=== PATIENT | male | born 1985 | race Caucasian/White ===

== ENCOUNTER → 2024-02-13 | Outpatient (CLI) | payer OTHER ==
[2024-02-13 18:57] LABS: Basophils # (A) 0.05 X 10*3/uL (0.00-0.10); Basophils % (A) 0.6 %; HCT 47.4 % (39.6-50.0); HGB 15.8 g/dL (13.0-17.0); Lymphocytes # (A) 1.63 X 10*3/uL (0.90-5.00); MCH 29.6 pg (27.0-32.0); MCHC 33.3 g/dL (32.0-37.0); MCV 88.8 FL (80.0-97.0); Mean Platelet Volume 10.6 FL (9.5-12.2); Monocytes # (A) 0.53 X 10*3/uL (0.20-1.00); Monocytes % (A) 6.2 %; NRBC Per 100 WBC 0 X 10*3/uL (0.00-0.01); Neutrophils # (A) 5.72 X 10*3/uL (1.80-7.70); Neutrophils % (A) 66.6 %; Platelet Count 260 X 10*3/uL (140-440); RBC 5.34 X 10*6/uL (4.40-5.60); RDW 12.8 % (11.5-14.5); WBC 8.58 X 10*3/uL (4.50-10.00)
[2024-02-13 19:30] LABS: BUN/Creat Ratio 13.91 Ratio (12.00-20.00); Blood Urea Nitrogen 15.3 mg/dL (9.0-27.0); Calcium 9.1 mg/dL (8.7-10.3); Carbon Dioxide 25.6 mmol/L (21.6-31.8); Chloride 104 mmol/L (96-109); Glucose 86 mg/dL (70-110); Potassium 4.5 mmol/L (3.5-5.5); Sodium 140 mmol/L (135-145)
== END | disposition home or self-care (01) ==
LOC: LABPAT 13:11
PROVIDERS: ATTEND Orthopaedic Surgery
DX: Z01.812 Encounter for preprocedural laboratory examination
CPT/HCPCS: 36415; 80048; 85025

== ENCOUNTER 2024-02-28 06:11 | Day surgery (SDC) | payer OTHER ==
--- NOTE | 2024-02-27 08:35 | P.HPOR ---
History of Present Illness H&P Date: 02/27/24 Chief Complaint: left knee pain The patient is a 38-year-old male who presents with left knee pain after an injury November of this year after working out when he felt a pop in his knee. He notes swelling and stiffness ever since. He has painful popping along with giving way. He has a history of ACL reconstruction in 2003. He notes daily pain that limits him. Review of Systems Per HPI Past Medical History Past Surgical History: Orthopedic Surgery (Left ACL reconstruction) Physical Examination - Knee left Appearance: effusion Effusion grade: trace Tenderness with palpation: medial ROM: extension: -10 degrees ROM: flexion: 110 degrees Crepitus with motion: Yes Strength: extension: 5/5 Strength: flexion: 5/5 ACL tests: Dolores's: grade 1, pivot shift: grade 1 Meniscal tests: medial meniscal tests: positive, medial joint line pain: positive Results The patient is a well-developed well-nourished male approximately 49, 220 pounds of mesomorphic habits. HEENT exam is nonfocal, neck is supple. His painless passive motion of the left hip. He is tender about the medial joint line of the left knee. Collaterals are stable, Dolores's 1+, Aditya's with medial pain. His distal neurovascular appears intact in the left lower extremity. - Diagnostic results Knee MRI: image reviewed (MRI of the left knee shows evidence of increased signal involving the posterior medial and lateral menisci. The ACL graft appears to be intact. Degenerative changes involving the lateral compartment are present.) Assessment and Plan Assessment: Left knee internal derangement with symptomatic medial meniscal tear History of left ACL reconstruction Plan: I talked to the patient at length regarding his condition along with treatment options. At this point he is having pain and mechanical symptoms after this recent injury despite conservative measures. After a thorough discussion he opts to proceed with surgery. We'll plan to proceed with arthroscopic evaluation with possible partial medial meniscectomy. Risks and benefits were discussed at length in layman's terms. We will likely perform this as an outpatient procedure.
[2024-02-28] MEDS ORDERED: LIDOCAINE 1% (10MG/ML) FOR IV START INTRADERMA PRN (06:12)
[2024-02-28] MEDS ORDERED: MIDAZOLAM 2 MG/2 ML VIAL IV PRN (06:12)
[2024-02-28] MEDS ORDERED: fentaNYL (PF) 50 MCG/ML 2 ML AMP IVP PRN (06:12)
[2024-02-28] MEDS: IV FLUID CONTINUATION 1,000 ML IV ONE ×2 (06:45→09:10)
[2024-02-28] MEDS: ONDANSETRON 4 MG/2 ML VIAL IVP ONE (07:07)
[2024-02-28] MEDS: DEXAMETHASONE SOD PHOSPHATE 4 MG/ML 1 ML VIAL IV ONE (07:07)
[2024-02-28] MEDS: LACTATED RINGERS 1,000 ML IV SCH (07:07)
[2024-02-28] MEDS ORDERED: fentaNYL (PF) 50 MCG/ML 2 ML AMP ONE (07:40)
[2024-02-28] MEDS ORDERED: PROPOFOL 10 MG/ML 20 ML VIAL IV ONE (07:40)
[2024-02-28] MEDS ORDERED: LIDOCAINE 1% INJ 10MG/ML (20 ML MDV) ONE (07:40)
[2024-02-28] MEDS ORDERED: HYDROmorphone (PF) 1 MG/ML ONE (07:40)
[2024-02-28] MEDS ORDERED: MIDAZOLAM 2 MG/2 ML VIAL ONE (07:40)
[2024-02-28] MEDS: EPINEPHrine (PF) 1 ML in SODIUM CHLORIDE 0.9% IRRIGATIO 3,000 ML IRRIGATION ONE (07:59)
--- NOTE | 2024-02-28 08:43 | P.OP ---
Date of Procedure: 02/28/24 Preoperative Diagnosis: Left knee internal derangement Postoperative Diagnosis: Left knee posterior medial meniscal tear/posterior lateral meniscal tear Procedure(s) Performed: Left knee arthroscopic partial medial meniscectomy/partial lateral meniscectomy Anesthesia: JAZMIN Surgeon: Shree Rios Estimated Blood Loss (ml): 10 Pathology: none sent Condition: stable Disposition: PACU Indications for Procedure: The patient is a 38-year-old male who presents with progressive left knee pain after a twisting injury. He tried conservative measures with persistence of pain and mechanical symptoms. A discussion of the risks and benefits of operative intervention versus continued conservative measures was made with the patient. He opted to proceed with surgery. Operative risks include infection, neurovascular injury, development of blood clots, possible incomplete resolution of symptoms, possible worsening of symptoms, and possible need for subsequent procedures was discussed. Informed consent was obtained. Operative Findings: As below Description of Procedure: The patient was brought to the operating room, and after induction of general anesthesia examined the left knee. Collaterals were stable, Dolores was negat kameron, and posterior drawer was negative. The left lower extremity was prepped and draped in a normal fashion. A superior lateral portal was made through a 3 mm skin incision superior and lateral to the patella. This was used for outflow. A lateral portal was made through a 5 mm vertical skin incision lateral to the patella tendon above the joint line. Diagnostic arthroscopy was performed. On inspection of the medial compartment, a longitudinal tear involving the posterior horn of the medial meniscus in the white-red junction was noted. This was unstable. This was debrided back to a stable base with straight baskets and a motorized shaver. The remaining medial meniscus was stable and intact. Grade 2 chondral changes were noted diffusely in the medial compartment. This was debrided back to stable base with straight baskets and a motorized shaver. On inspection of the notch, the anterior cruciate ligament graft appeared to be intact. On inspection of the lateral compartment, an oblique tear involving the posterior most aspect of the lateral meniscus in the white-red junction was noted. This was not amenable to repair. This debrided back to a stable base with straight baskets and a motorized shaver.. On inspection of the patellofemoral articulation, grade 2 chondral changes were noted diffusely in the femoral trochlea and the lateral patella facet. The gutters were clear debris. The knee was then thoroughly irrigated. The portals were closed with Steri-Strips. A sterile dressing was applied in addition to a compression stocking. The patient was awoken from general anesthesia and transferred to recovery room in good condition. Blood loss was estimated at 10 mL. No complications were incurred.
[2024-02-28 08:58] VITALS: TEMP 96.8
[2024-02-28] MEDS: HYDROmorphone 0.5 MG/0.5 ML SYRINGE IVP PRN (09:06)
[2024-02-28] MEDS: KETOROLAC 15 MG/ML 1 ML VIAL IVP STA (09:08)
[2024-02-28 10:15] VITALS: BP 127/82; PULSE 77; RESP 16
== END 2024-02-28 10:25 | disposition home or self-care (01) ==
LOC: OR 06:11
PROVIDERS: ATTEND Orthopaedic Surgery
DX: S83.242A Other tear of medial meniscus, current injury, left knee, initial encounter (principal); S83.282A Other tear of lateral meniscus, current injury, left knee, initial encounter; M23.92 Unspecified internal derangement of left knee; X50.1XXA Overexertion from prolonged static or awkward postures, initial encounter
CPT/HCPCS: 29880; J2250; J1100; J0690; J2405; J0171; J2003; J3010; J1171 ×2; J1885; J2704